=== PATIENT | male | born 1970 | race Caucasian/White ===

== ENCOUNTER → 2022-02-22 04:00 | Outpatient (CLI) | payer BC, SELFPAY | PROVIDERS: PCP Nurse Practitioner Family; Visit Provider Physician Assistant Medical ==

== ENCOUNTER 2022-08-30 06:06 | Day surgery (SDC) | payer BC, SELFPAY ==
[2022-08-30] VITALS (18 sets, daily range): BP systolic 98–132; BP diastolic 61–92; PULSE 64–81; RESP 11–22; TEMP 36.2–36.6; O2SAT 94–100; BMI 21.1
--- NOTE | 2022-08-30 06:18 | W.PREOPHP ---
Assessment and Plan Assessment and plan (1) Bilateral inguinal hernia: Status: Acute Assessment and plan: Mr. Rodgers is a 51-year-old gentleman with bilateral inguinal hernias.? There are small on examination and reducible.? He is having some mild discomfort especially when lifting his daughter who is a toddler.? We discussed open versus laparoscopic repair.? I gave him the option of getting referred to [facility] or [facility] for bilateral laparoscopic inguinal hernia repair.? He would like to stay local and is okay with having open hernia repairs.? We discussed the hernia repairs in detail using a pamphlet.? I reviewed the risks and benefits with him.? Risks, benefits and complications have been reviewed. Complications include but are not limited to bleeding, infection, injury to vas, vessels and nerves, injury to bowel and adverse reaction to medications. Questions were entertained and answered to their satisfaction and they wished to proceed.? I also discussed pain control with him and his .? We reviewed tap blocks to try to avoid narcotics. Anesthesia: general Previous surgical intolerances: No Previous surgical complications: No Pulmonary risk factors: no Planned procedure: Yes Sleep apnea risks: No Can climb one flight of stairs (12-13 steps) in less than 30 seconds without stopping and without symptoms: Yes The surgery proposed for this patient is: low risk Active cardiac conditions: none Active risk factors: none ASA (acetylsalicylic acid): not used Beta blockers: not used Proceed with bilateral open inguinal hernia repair with mesh History of Present Illness Narrative: Mr. Rodgers is a pleasant 51-year-old gentleman who come in to the office in July to discuss a right inguinal hernia.? He stated that a couple weeks prior to his appointment he noticed a bulge in the right side while he was showering.? He has had some mild discomfort with it especially when lifting his daughter who is a toddler.? About a week ago he felt something on the left side as well.? The left side seems to be a little bit more uncomfortable than the right.? He has not had any urinary symptoms.? He is otherwise quite healthy and only has seasonal allergies for which he takes a nasal spray. He has not had any new health issues since I saw him last. He denies chest pain or shortness of breath with activity or at rest. Review of Systems All systems reviewed & are unremarkable except as noted in HPI and below PFSH All Active Problems Screening for colon cancer (Acute) Bilateral inguinal hernia (Acute) Inguinal hernia, right (Acute) Hernia (Chronic) Impacted esophageal foreign body (Acute) Medical History Anxiety Pain in left ankle Seasonal allergies Testicular nodule Surgical History EGD - MAC (07/27/17) EGD - MAC (08/31/17) Social History Smoking/Tobacco Use Status: Never Smoking risk assessment performed?: Yes Alcohol Intake: never Drug use: Never Substance use type: does not use Do you feel safe at home: Yes Do you feel safe in your relationship?: Yes Meds Allergies and Home Medications Allergies Allergy/AdvReac Type Severity Reaction Status Date / Time amoxicillin [From Augmentin] Allergy Unknown Verified 07/18/22 08:01 clavulanic acid Allergy Unknown Verified 07/18/22 08:01 [From Augmentin] Home Medications Medication Instructions Recorded Confirmed Type fluticasone propionate 50 2 spry inhalation DIRECTED PRN 09/26/13 08/28/22 History mcg/actuation nasal spray,suspension (Flonase) Exam Const General: cooperative, comfortable and no acute distress HENMT Head: normocephalic and atraumatic Resp Effort & Inspection: normal respiratory effort Auscultation: clear to auscultation bilaterally Cardio Rate: regular rate Rhythm: regular rhythm Heart Sounds: no gallops, no murmurs and no rubs GI Inspection: normal to inspection Palpation: soft, no hepatosplenomegaly, hernia (bilateral inguinal hernias) and nontender
--- NOTE | 2022-08-30 06:21 | W.PM.OP ---
Date of service: 08/30/22 Time of Service: 07:30 Operative Note Operative Note DATE OF PROCEDURE: 08/30/22 PRE-OP DIAGNOSIS: Right recurrent inguinal hernia and left inguinal hernia POST-OP DIAGNOSIS: same (Recurrent right direct inguinal hernia and left direct inguinal hernia) PROCEDURE: Bilateral inguinal hernia repair with mesh SURGEON: Paige Iverson [employer]ATOR: Nasreen Bush Refer to Anesthesia Record PATHOLOGY: none sent COMPLICATIONS: None Patient was transported to: PACU Patient's condition: stable Indications: Mr. Rodgers is a 51-year-old gentleman with bilateral inguinal hernias.? There are small on examination and reducible.? He is having some mild discomfort especially when lifting his daughter who is a toddler.? We discussed open versus laparoscopic repair.? I gave him the option of getting referred to [facility] or [facility] for bilateral laparoscopic inguinal hernia repair.? He would like to stay local and is okay with having open hernia repairs.? We discussed the hernia repairs in detail using a pamphlet.? I reviewed the risks and benefits with him.? Risks, benefits and complications have been reviewed. Complications include but are not limited to bleeding, infection, injury to vas, vessels and nerves, injury to bowel and adverse reaction to medications. Questions were entertained and answered to their satisfaction and they wished to proceed.? I also discussed pain control with him and his .? We reviewed tap blocks to try to avoid narcotics. Findings: moderate sized direct hernias Procedure Description: After informed consent was obtained the patient was taken to the operating room and placed in a supine position. He was placed under general anesthesia and an LMA was placed. A timeout was done for the bilateral block. Anesthesia the proceeded with a bilateral nerve blocks under ultrasound guidance please see separate report. His abdomen was prepped and draped with us in a sterile surgical fashion with ChloraPrep. A 4 cm incision was then made in the left inguinal area. Cautery was used to get through the subcutaneous tissue down to the external oblique fascia. The external ring was identified and the fascia was opened from the external ring up. The edges of the cut external oblique fascia were grasped with hemostats. The vas and its vessels were identified and a Elaine drain was placed around the vas. The cremasteric muscle was dissected away from the vas and its vasculature using blunt dissection as well as cautery. A moderate direct hernia was then identified. A 3x6 cm flat mesh was then attached to the lacunar ligament and then medially and laterally with a 2-0 Prolene. The tails of the mesh were placed under the external oblique fascia. The wound was then irrigated with some normal saline and dried. There external oblique fascia was reapproximated using 2-0 Vicryl. The scarpas fascia was closed with interrupted 3-0 vicryl. The skin was closed with a running 4-0 Vicryl suture. Next a 4 cm incision was made in the right inguinal area. Cautery was used to get through the subcutaneous tissue down to the external oblique fascia. The external ring was identified and the fascia was opened from the external ring up. The edges of the cut external oblique fascia were grasped with hemostats. A moderate direct inguinal hernia was identified. The vas and its vessels were identified hugging the lateral shelving edge. I was able to gently separate them from the shelving edge and a [place]on drain was placed around the vas and its vessels. A flat 3 x 6 Bard mesh was then cut to size and attached to the lacunar ligament with 2-0 Prolene. The mesh was attached laterally and medially with a 2-0 Prolene running suture all the way up past the cord structures. The internal ring was re-created with the mesh. The extra tail of the mesh was then placed underneath the external oblique fascia. The area was irrigated with saline. The external oblique fascia was reapproximated using 2-0 Vicryl. The subcutaneous tissue was reapproximated using 3-0 Vicryl. The dermis was reapproximated using a running 4-0 Vicryl suture. . Skin was cleaned and dried and skin affix was applied to all incisions. The drapes were removed and the testicles were palpated and they were both within the scrotum. The patient was woken up extubated and taken back to PACU in stable condition. Sponge instrument needle counts were correct at the end of the case x2.
--- NOTE | 2022-08-30 06:24 | W.PM.DSUDISC ---
Date of service: 08/30/22 Time of Service: 12:04 Discharge Plan Disposition Condition: Good Discharge Details Reason For Visit: Bilateral inguinal hernias Attending Provider: Paige Iverson Primary Care Provider: Modesta Prieto Home Meds and New Rx's Prescriptions: New oxycodone 5 mg tablet 5 mg PO Q6H PRNQty: 14 0RF Discontinued fluticasone propionate [Flonase] 16 GM spray,suspension 2 spry Inhalation DIRECTED PRN Label Comments: 05/25/14-No longer takes. LP Discharge Instructions Additional Instructions: Activity at Home after surgery: 1. Make sure you walk outside at least 4 times per day 2. You should be able to climb a flight of stairs 3. No driving while in pain or taking pain medications 4. No strenuous activity or heavy lifting (no more then 10 lb) for 4 weeks (open surgery) Diet, Nutrition, & wound healin. Avoid alcohol until after you are recovered from your surgery 2. Make sure to eat plenty of lean protein (meat, fish, eggs, cottage cheese, beans) 3. Eat a variety of fruits and vegetables. Eat plenty of high fiber foods to avoid constipation. 4. Drink plenty of liquids to stay hydrated and avoid constipation Pain Medications: 1. Tylenol 650mg every 6 hours as needed and Ibuprofen 600 mg every 6 hours as needed. You may alternate between the 2 medications every 3 hours 2. If a narcotic has been prescribed take as directed only for breakthrough pain For Constipation: 1. Take Milk of Magnesia or MiraLax as needed for constipation Other: 1. You may shower daily. Do not scrub the incisions 2. Do not soak the incisions for 1 week 3. You may alternate ice and heat as needed for pain and swelling Wound Care: 1. Keep the incisions clean and dry Please call our office if you develop: 1. Fevers >101.5 2. Nausea or Vomiting 3. Worsening pain 4. Redness and thick discharge from the wounds If after hours please call the Hospital at and ask to speak to the on-call surgeon Stand Alone Forms: Anesthesia Discharge Inst., [facility].Nerve Block Instructions, Cony Cabrera (DSU) Activity:: as above Shower/Bathe:: 24 hours Equipment/Supplies:: No Equipment Needed Diet:: As Tolerated DS: Diagnosis Discharge Diagnosis (1) Bilateral inguinal hernia: Status: Acute
[2022-08-30] MEDS: Gabapentin 300 MG CAP 600 MG PO (06:51)
[2022-08-30] MEDS: Acetaminophen 500 MG TAB 1000 MG PO (06:51)
[2022-08-30] MEDS: Celecoxib 200 MG CAP PO (06:51)
--- NOTE | 2022-08-30 07:04 | W.ANESPRE ---
General Info Date of Service Date Performed: 08/30/22 Height: 5 ft 11 in Weight: 68.8 kg Body Mass Index (BMI): 21.1 Surgical Procedure: Operation Date: 08/30/22 07:40 Proposed Procedure Side Surgeon p Herniorrhaphy Inguinal w/Mesh Bilateral Paige Iverson MD Meds Allergies and Home Medications Allergies Allergy/AdvReac Type Severity Reaction Status Date / Time amoxicillin [From Augmentin] Allergy Unknown Verified 07/18/22 08:01 clavulanic acid Allergy Unknown Verified 07/18/22 08:01 [From Augmentin] Home Medication Medication Instructions Recorded fluticasone propionate 50 2 spry inhalation DIRECTED PRN 09/26/13 mcg/actuation nasal spray,suspension (Flonase) Current Visit Medications: Current Medications Generic Name Dose Route Start Last Admin Trade Name Freq PRN Reason Stop Dose Admin Acetaminophen 1,000 mg 08/30/22 06:00 08/30/22 06:51 Acetaminophen 500 Mg Tab PO 09/28/22 23:59 1,000 mg PREOP CHARITY Administration Celecoxib 200 mg 08/30/22 06:00 08/30/22 06:51 Celecoxib 200 Mg Cap PO 09/28/22 23:59 200 mg PREOP CHARITY Administration Gabapentin 600 mg 08/30/22 06:00 08/30/22 06:51 Gabapentin 300 Mg Cap PO 09/28/22 23:59 600 mg PREOP CHARITY Administration Ringer's Solution 1,000 mls @ 80 mls/hr 08/30/22 06:00 IV 09/28/22 23:59 INFUSION CHARITY Cefazolin Sodium/Dextrose 2 gm in 50 mls @ 100 mls/hr 08/30/22 06:00 Ancef Duplex IVPB 09/28/22 23:59 PREOP CHARITY Ondansetron HCl 4 mg/ Sodium 52 mls @ 200 mls/hr 08/30/22 06:25 Chloride IVPB Q6H PRN PRN IV Miscellaneous Supplies 1 each 08/30/22 06:00 Iv Access IV 09/28/22 23:59 DIRECTED CHARITY Ibuprofen 600 mg 08/30/22 06:25 Ibuprofen 600 Mg Tab PO Q6H PRN PRN Pain Oxycodone HCl 5 mg 08/30/22 06:25 Oxycodone 5 Mg Tab PO Q3H PRN PRN Pain Sodium Chloride 0 ml 08/30/22 06:00 Normal Saline Flush 10 Ml Syr IV 09/28/22 23:59 PRN PRN Sodium Chloride 0 ml 08/30/22 06:00 Normal Saline 10 Ml Vial IJ 09/28/22 23:59 DIRECTED PRN Sterile Water 0 ml 08/30/22 06:00 Water,Injection,Sterile 10 Ml Vial IJ 09/28/22 23:59 DIRECTED PRN PFSH Active Problems Active Problems: Problem Status Onset Code Impacted esophageal foreign body T18.108A Hernia K46.9 Inguinal hernia, right K40.90 Bilateral inguinal hernia K40.20 Screening for colon cancer Z12.11 Medical History Medical History Anxiety Pain in left ankle Seasonal allergies Testicular nodule Medical History Comments:: at age 8, he reports nausea after surgery Surgical History Surgical History (Updated 08/30/22 @ 06:34 by Jocy Castro) EGD - MAC (07/27/17) EGD - MAC (08/31/17) Hx of wisdom tooth extraction Tobacco Smoking/Tobacco Use Status: Never Alcohol Alcohol Intake: never Substance Use Substance use: Never Substance use type: does not use Vital Signs and Lab Results Vital Signs Most Recent Vital Signs in EMR: Most Recent Vital Signs Temp Pulse Resp BP Pulse Ox 36.5 C 75 18 117/92 H 96 08/30/22 06:39 08/30/22 06:39 08/30/22 06:39 08/30/22 06:39 08/30/22 06:39 Lab Results Blood Type / Crossmatch: No Data to Display Complete Blood Count: No Data to Display Complete Metabolic Panel: No Data to Display Liver Function Panel: No Data to Display Coagulation Panel: No Data to Display Cardiac Panel: No Data to Display Arterial Blood Gas: No Data to Display Venous Blood Gas: No Data to Display Pancreas Panel: No Data to Display Thyroid Panel: No Data to Display Infectious Disease: No Data to Display Blood Cultures: No Data to Display Toxicology Panel: No Data to Display Anesthesia Assessment and Plan Anesthesia History Personal History: No History of Anesthesia Complications Family History: No Family History of Anesthesia Complications Exercise Tolerance Exercise Tolerance: Metabolic Equivalents>4 Pertinent Negatives Pertinent Negatives: No Symptoms of GERD, No Major Cardiovascular Symptoms or Complaints, No Major Pulmonary Symptoms or Complaints and No History of CVA/TIA Cardiac & Pulmonary Exam Cardiac Exam: Normal S1/S2 Heart Sounds Pulmonary Exam: Clear Bilateral Breath Sounds Implantable Cardiac Device Does patient have a Pacemaker or an ICD?: No Airway Exam Known Difficult Airway: No Mallampati Class: 1 Mouth Opening: Normal (> 3cm) Thyromental Distance: Greater than 3 cm Neck Range of Motion: Full ROM Neck Circumference: Normal Teeth Condition: Normal Dentition ASA Classification ASA Score: ASA 2 Emergency Case?: No NPO Status NPO Status: NPO Clears >2 hours, Solids >8 hours Anesthesia Plan Resuscitation Status: Full Code Anesthesia Technique: General Anesthesia Airway Planned: LMA Monitors Used: Standard Monitors
[2022-08-30] MEDS: Lactated Ringers 1,000 ML 80 ML IV (07:15)
[2022-08-30] MEDS: ceFAZolin 2 GM/50 ML BAG IVPB (07:44)
[2022-08-30] MEDS: Bupivacaine 0.25% Pres-Free 10 ML VIAL (07:59)
--- NOTE | 2022-08-30 08:04 | W.ANESNERVE ---
Nerve Block Single Injection Procedure Date and Time Date Performed: 08/30/22 Procedure Start: 07:39 Location Where Procedure Performed Procedure Location: Operating Room Procedure Stop: 07:45 Reason Performed: Postoperative Analgesia Requesting Provider: Paige Iverson Timeout Performed Timeout Performed: Yes Monitoring Used ECG, Blood Pressure, SpO2 and ETCO2 Sterility Sterility: Hand Hygiene, Surgical Cap, Surgical Mask, Sterile Gloves, Eye Protection and Chlorhexidine Sedation Given During Procedure Sedation Given (Indicate Dose Given): Propofol IV Dose:: 200mg Patient Mental Status Patient Mental Status: Performed under general anesthesia Nerve Block 1st Nerve Block: Laterality: Bilateral Block Type: TAP Bilateral Needle / Catheter Used: 100mm SonoPlex II Local Anesthetic Bolus (Indicate Dose Given): Injected in 3-5ml increments after negative blood aspiration, Half of Total block solution given into each side and Bupivacaine 0.25% Dose:: 30cc Additives (Indicate Dose Given): Epinephrine to make 1:200,000 (5mcg/ml) Dose:: 15cc each side Ultrasound: Sterile probe cover and gel used Ultrasound Image Saved?: Yes Nerve Stimulator: Not Used Paresthesia: None Post Procedure Pain score (0-10): 0 Procedure Tolerated: No Complications and Patient tolerated well Procedure Outcome: Successful Performed By: Teofilo Mccord
[2022-08-30] MEDS: fentaNYL 100 MCG/2 ML VIAL IVP (10:23)
--- NOTE | 2022-08-30 11:04 | W.ANESPOSTOP ---
Postoperative Evaluation Date, Time and Location Date Performed: 08/30/22 Time Performed: 11:05 Patient Location: Day Surgery Unit Vital Signs Most Recent Imported Vital Signs: Most Recent Vital Signs Temp Pulse Resp BP Pulse Ox 36.3 C L 64 18 110/75 98 08/30/22 10:47 08/30/22 10:47 08/30/22 10:47 08/30/22 10:47 08/30/22 10:47 Pain Score Most Recent Pain Score: Most Recent Pain Score Pain Level 3 08/30/22 10:47 Assessment Mental Status: Awake (Alert & Oriented to Patient Baseline) Airway and Respiratory Function: Patent airway with normal (patient baseline) respiratory exam Cardiovascular Function: Hemodynamically Stable Hydration Status: Adequately Hydrated Nausea & Vomiting: No Nausea or Vomiting Pain: Pain is tolerable per patient Peripheral Nerve Block: Patient did not receive a nerve block
[2022-08-30] MEDS: oxyCODONE 5 MG TAB PO (12:04)
[2022-08-30] MEDS: Ondansetron 4 MG/2 ML VIAL IVP (13:05)
== END 2022-08-30 15:15 | disposition home or self-care (01) ==
PROVIDERS: PCP Nurse Practitioner Family; Visit Provider Surgery
PROC: (CPT 49520; principal; 2022-08-30 07:30)
DX: K40.21 Bilateral inguinal hernia, without obstruction or gangrene, recurrent (principal)
CPT/HCPCS: 49520; 76942; C1781; J0131; J0690; J1100; J1200; J1885; J2001; J2250; J2405; J3010

== ENCOUNTER 2023-03-07 20:29 | Emergency (ER) | payer BC, SELFPAY ==
--- NOTE | 2023-03-07 20:30 | RT.EKG_ITS ---
APPROVED REPORT This report is currently processing and has not been officially signed by ADRIANNA MENDEZ.. [facility] TIME OF PERMANENT APPROVAL IS 03/11/2023 17:09 Exam: Resting ECG Reason for Exam: chest pain Patient Location: E HR:70 bpm ECG Measurements Heart Rate 70 AXIS GA 196 P 75 QRSd 76 QRS 75 QT 352 T 70 QTc 380 Conclusion Sinus rhythm...normal P axis, V-rate 60- 99
--- NOTE | 2023-03-07 20:30 | DI.RAD_ITS ---
Exam(s) XR PORTABLE CHEST AP EXAM: XR PORTABLE CHEST AP CLINICAL HISTORY: chest pain TECHNIQUE: 2D digital imaging was performed of the chest. One image was obtained. An AP view was ob tained. COMPARISON: CR CHEST 2 VIEWS PA,LAT from 07/26/2017 FINDINGS: MEDIASTINUM: Normal. HEART: Normal. PULMONARY VASCULATURE: Normal. LUNGS: Clear. PLEURAL SPACE: No pleural effusion or pneumothorax. BONE:Within normal limits for the patient's age. OTHER FINDINGS:Normal. IMPRESSION: No acute pulmonary findings. DATA REPOSITORY: RADIATION DOSE DELIVERED:
[2023-03-07 20:33] VITALS: BP 144/87; PULSE 86; RESP 16; TEMP 36.2; O2SAT 98
--- NOTE | 2023-03-07 20:47 | ED.GENADUL_ITS ---
Discharge Plan Disposition Patient Disposition: Home Condition: Stable Discharge Details Clinical Impression: Food impaction of esophagus Primary Care Provider: Modesta Prieto ED Provider: Bertram William Home Meds and New Rx's Prescriptions: Continued fluticasone propionate [Flonase Allergy Relief] 50 mcg/actuation spray,suspension 1 spray intranasal DAILY Rx Instructions: administer into each nostril Discharge Instructions Instructions: Food Impaction (ED) Additional Instructions: return to the emergency department if you develop inability to swallow liquids, you have difficulty breathing or severe pain you should be contacted with an appointment to follow up with general surgery follow up with your primary care provider if you have lingering symptoms such as mild stomach discomfort. Medical Decision Making 52 yo male who has a hx of prior food impaction in 2017 comes in after he was eating pork tonight and felt a pressure in his lower chest similar to when he had his prior food impaction. He denies vomiting, no dyspnea, states he hasn't tried eating or drinking anything. He arrives stable speaking clearly in no distress. He has a soft nontender abdomen, points to the lower chest where he feels pressure as if something is stuck. Suspect food impaction, will trial eff ervescent and if this isn't effective try glucagon. Doubt acs but given he localizes the discomfort to the chest will obtain ecg and troponin. labs and xray unremarkable and pt feels better after effervescent and feels the impaction sensation he had is gone now, no vomiting and swallowing normally. Given he has no vomiting and the food was soft with no bones andseems like it has passed based on his description do not feel he needs emergent endoscopy. He is stable for d/c, will place on the f/u list to see general surgery as an outpatient, return precautions given Differential Diagnosis Differential Diagnosis: food impaction, gastritis Medical Records Medical records reviewed: Yes I reviewed the patient's medical records. Imaging Data Radiologic Study: Attestation: I personally reviewed and interpreted this imaging study as follows: Imaging: X-Ray Radiologist's impression: no acute findings ECG Data Attestation: I personally reviewed and interpreted this ECG (s) as follows: Prior ECG tracings: not available for review Interpretation: sinus rhythm, rate of 70, pr 196, no acute ischemic findings HPI General Mode of arrival: ambulatory . Date/Time Provider Initiated Documentation: 03/07/23 20:39 . Limitations to Documentation: no limitations . Information obtained by: patient . History of Present Illness 52 year old M presents to the emergency department with the chief complaint of ?food impaction, described as moderate, Patient started experiencing this hour(s) (2) and it has been constant. No relieving factors improve symptom(s), No exacerbating factors reported . Patient notes no other symptoms.. Patient did receive the following treatments prior to arrival, none Related Data Home Medications Medication Instructions Recorded Confirmed fluticasone propionate 50 1 spray intranasal DAILY 09/12/22 10/19/22 mcg/actuation nasal spray,suspension (Flonase Allergy Relief) Allergies Allergy/AdvReac Type Severity Reaction Status Date / Time amoxicillin [From Augmentin] Allergy Unknown Verified 10/19/22 15:19 clavulanic acid Allergy Unknown Verified 10/19/22 15:19 [From Augmentin] General Stated Complaint: Abd Prob TOÑO: 3 Review of Systems All systems reviewed & are unremarkable except as noted in HPI and below Constitutional Constitutional: Denies chills, Denies fever(s) and Denies weakness Cardiovascular Cardiovascular: Denies dyspnea Respiratory Respiratory: Denies cough and Denies dyspnea Gastrointestinal Gastrointestinal: Denies abdominal pain, Denies nausea and Denies vomiting Integumentary/Breasts Skin/Breast: Denies rash Neurologic Neurologic: Denies weakness PFSH All Active Problems (Updated 03/07/23 @ 21:48 by Bertram William MD) Food impaction of esophagus (Acute) Visit for wound check (Acute) Impacted esophageal foreign body (Acute) Hernia (Chronic) Inguinal hernia, right (Acute) Screening for colon cancer (Acute) Medical History (Updated 03/07/23 @ 21:48 by Bertram William MD) Anxiety Bilateral inguinal hernia Pain in left ankle Seasonal allergies Testicular nodule Surgical History (Updated 08/30/22 @ 06:34 by Jocy Castro) EGD - MAC (07/27/17) EGD - MAC (08/31/17) Hx of wisdom tooth extraction Social History Smoking/Tobacco Use Status: Never Smoking risk assessment performed?: Yes Alcohol Intake: never Drug use: Never Substance use type: does not use Do you feel safe at home: Yes Do you feel safe in your relationship?: Yes Additional Social history: unable assess privately Exam Const General: no acute distress Orientation: alert HENMT Head: normal to inspection Ears: external ears normal General nose exam: external nose normal Mouth: moist mucous membranes Eyes General: appearance normal, both eyes and all related structures Neck Neck: normal visual inspection Resp Effort & Inspection: normal respiratory effort and able to speak in complete sentences Auscultation: clear to auscultation bilaterally Cardio Jugular venous pressure: no JVD Rate: regular rate Heart Sounds: no murmurs GI Palpation: soft and nontender Skin General skin exam: no rashes or lesions noted Neuro General: patient alert and patient oriented x3 Extrem General: normal to inspection Psych Mental Status: mental status grossly normal Course Vital Signs Vital signs: Vital Signs Temperature 36.2 C L 03/07/23 20:33 Pulse 86 03/07/23 20:33 Respiratory Rate 16 03/07/23 20:33 Blood Pressure 144/87 H 03/07/23 20:33 Pulse Oximetry 98 03/07/23 20:33 Temperature 36.2 C L 03/07/23 20:33 Temperature Source Temporal Artery Scan 03/07/23 20:33 Pulse 86 03/07/23 20:33 Respiratory Rate 16 03/07/23 20:33 Blood Pressure 144/87 H 03/07/23 20:33 Blood Pressure Position Sitting 03/07/23 20:33 Pulse Oximetry 98 03/07/23 20:33 Oxygen Delivery Method Room Air 03/07/23 20:33 Oxygen Flow Rate 0 03/07/23 20:33
[2023-03-07] MEDS: Ondansetron 4 MG/2 ML VIAL IVP (20:58)
[2023-03-07] MEDS: Normal Saline 1,000 ML 1000 ML IV (20:58)
[2023-03-07 21:04] LABS: Abs Immature Grans 0.01 10^3/uL (0.0-0.06); Absolute Basophil Count 0.06 10^3/uL (0.0-0.2); Absolute Eosinophil Count 0.22 10^3/uL (0.0-0.7); Absolute Lymphocyte Count 1.97 10^3/uL (1.2-3.4); Absolute Monocyte Count 0.44 10^3/uL (0.1-0.8); Eosinophils % 3.7; HCT 49.2 % (40.0-50.0); HGB 16.4 g/dL (13.5-17.5); Immature Grans % 0.2; Lymphocytes % 33.4; MCH 29.5 pg (27.0-33.0); MCHC 33.3 % (32.0-36.0); MCV 89 fL (80-95); MPV 9.7 fL (8.0-11.0); Monocytes % 7.5; Neutrophils % 54.2; Platelet Count 189 10^3/uL (130-400); RBC 5.56 10^6/uL (4.36-5.78); RDW 12.2 % (11.8-14.1); RDW-SD 39.8 fL
[2023-03-07] MEDS: Potassium Bicarbonate/Cit AC 25 MEQ TABLET.EFF PO (21:08)
--- NOTE | 2023-03-07 21:49 | DI.VRAD_ITS ---
PROCEDURE INFORMATION: Exam: XR Chest Exam date and time: 03/07/2023 9:03 PM Age: 52 years old Clinical indication: Other: Chest pain TECHNIQUE: Imaging protocol: Radiologic exam of the chest. Views: 1 view. COMPARISON: CR CHEST 2 VIEWS PA,LAT 07/26/2017 8:13 PM FINDINGS: Lungs: Unremarkable. No consolidation. Pleural spaces: Unremarkable. No pleural effusion. No pneumothorax. Heart/Mediastinum: Unremarkable. No cardiomegaly. Bones/joints: Unremarkable. IMPRESSION: No acute findings. Dictated and Authenticated by: Kvng Ramirez MD. Ordering:TALA Burden MD
[2023-03-07 21:59] LABS: ALT 35 U/L (16-63); AST 17 U/L (15-37); Albumin 3.6 g/dL (3.4-5.0); Alkaline Phosphatase 45 U/L (46-116); Anion Gap 4.7 mmol/L (3-11); BUN 11 mg/dL (7-18); Bilirubin, Total 0.4 mg/dL (0.2-1.0); CO2 31.3 mmol/L (21.0-32.0); CREATININE 1.1 mg/dL (0.70-1.30); Calcium 8.6 mg/dL (8.5-10.1); Chloride 104 mmol/L (98-107); Estimated GFR 80.77 (mL/min/1.73m2); Glucose 126 mg/dL (74-106); Lipase 38 U/L (16-77); Potassium 3.5 mmol/L (3.5-5.1); Sodium 140 mmol/L (136-145); Troponin I < 50 ng/L (<or=60)
--- NOTE | 2023-03-07 22:04 | NUR.NOTE ---
Pt placed on care management list for food impaction F/U [facility] per Dr. Roge William
== END 2023-03-07 22:20 | disposition home or self-care (01) ==
PROVIDERS: Emergency Provider Emergency Medicine; PCP Nurse Practitioner Family
DX: T18.128A Food in esophagus causing other injury, initial encounter
CPT/HCPCS: 36415; 80053; 83690; 93005; 96361; 96374; 99284; 71045; 83735; 84484; 85025; 93010; J2405

== ENCOUNTER 2023-07-06 06:03 | Day surgery (SDC) | payer BC, SELFPAY ==
--- NOTE | 2023-07-05 11:02 | W.COLOREPORT ---
Date of service: 07/06/23 Time of Service: 08:02 Colonoscopy Report Date of procedure: 07/06/23 Pre-op diagnosis general: CRC screening Post-op diagnosis procedure note: other (Polyps x2) Surgeon: Geraldine Virk Anesthesia Type: General:No Airway Estimated blood loss (mL): 2 Pathology: other Complications: None Disposition: same day Prep: Miralax/Dulcolax Retraction Time: 13 Procedure Description: After informed consent was obtained the patient was taken to the procedure room and placed in a left decubitous position. Monitors were applied and a time out was done. The patients name, date of , procedure, allergies to medications and metal in their body was reviewed. The patient was then sedated. Once sedated and comfortable a rectal exam was done. External exam was normal. Internal exam revealed a normal sphincter tone and no palpable masses. The prostate normal. The scope was then introduced and retrofelexed. No internal hemorrhoids were identified. The scope was then advanced to the cecum without difficulty. The TI and appendiceal orifice were identified. The prep was BBPS 3 in all segments for total of 9. The scope was then slowly retracted over 13 minutes back into the rectum. There are no diverticula or AVMs noted. The mucosa is pink and healthy. He had 2 polyps that we removed: 1 at 70 cm that is a 5 mm flat polyp that is removed with a cold biting forcep and another at 40cm that is a 0.75cm pedunculated polyp that is removed with a cold snare. There was some bleeding so a clip was placed across this and it did cease. All specimens are retrieved.. The scope was removed and the patient was woken up and taken back to Same day surgery in stable condition. The patient tolerated the procedure well and there were no immediate complications. Follow up: The patient should follow up in 5 years, path pending, years unless they develop changes in bowel habits or other new gastrointestinal complaints.
--- NOTE | 2023-07-05 11:03 | PDOC.DSDIS_ITS ---
Date of service: 07/06/23 Time of Service: 08:06 Discharge Plan Disposition Patient Disposition: Home Condition: Good Discharge Details Reason For Visit: Colon cancer screening Attending Provider: Geraldine Virk Primary Care Provider: Modesta Prieto Home Meds and New Rx's Prescriptions: Continued fluticasone propionate [Flonase Allergy Relief] 50 mcg/actuation spray,suspension 1 spray intranasal DAILY Rx Instructions: administer into each nostril Discontinued polyethylene glycol 3350 17 gram/dose powder 238 g PO ONCE Qty: 238 0RF Rx Instructions: take per colonoscopy instructions bisacodyl [Dulcolax (bisacodyl)] 5 mg tablet,delayed release (DR/EC) 5 mg PO ONCE Qty: 4 0RF Rx Instructions: take per colonoscopy instructions Discharge Instructions Additional Instructions: DSU Colonoscopy Post- Op Instructions Instructions for Everyone who is given Anesthesia: For your safety, please do the following for the next twenty-four (24) hours: *Do Not operate a motor vehicle (car, truck, motorcycle, etc.) *Do Not drink alcoholic beverages or use any recreational drugs for the first 24 hours or while taking pain medications. The medications in your body may have a reaction that can be dangerous. *Do Not make any important decisions or sign any important papers. Findings: Polyps x2 Follow up: My office will send a letter in 2 to 3 weeks time with the results of the pathology and when we want you to repeat the colonoscopy 1. No lifting over 20 pounds or strenuous activity for the first 24 hours after your procedure. After 24 hours there are no restrictions on your activity but you may feel fatigued for a few days. 2. After you arrive home you may have a light meal and return to your normal diet as you can tolerate it without feeling sick to your stomach. 3. You may have a bloated, gaseous feeling in your belly (abdomen) after a colonoscopy. Passing gas and belching will help. Walking or lying down on your left side with your knees flexed may relieve the discomfort. Call the office at [phone] (Office) or [phone] (Hospital) right away if you notice any of the following: a.Vomiting of blood or ?coffee ground stools?. b.Rectal bleeding 1Tbsp, blood clots or continuous bleeding. c.Severe belly (abdominal) pain. d.A hard distended belly (abdomen) and an inability to pass gas. 4. Please don?t expect to have a normal BM (bowel movement) for 2-3 days after your procedure. 5. If there are questions regarding the findings of your procedure, please contact your doctor 6. If you are unable to contact your doctor with a problem, contact the hospital at [phone]. 7. Continue all your regular medications unless directed otherwise. I understand the above instructions and have no questions. Signature of Patient or Adult Escort Name of Responsible Adult Escort Signature of Nurse Date/Time Activity:: See above Diet:: See above Discharge Orders Discharge Orders: Discharge Order (Routine); Ordered 07/06/23 Ordered By: Geraldine Virk DS: Diagnosis Discharge Diagnosis (1) Screening for malignant neoplasm of colon performed: Status: Acute Asessment and Plan: The patient is seen and examined after their colonoscopy.? The patient has been able to pass gas.? They are not having abdominal pain.? They have been able to tolerate liquids and a snack.? They do not have any nausea or vomiting.? They are not having any chest pain or shortness of breath.??? They are not having any rectal bleeding. Their vital signs have been stable-see nursing notes. We discussed findings during their colonoscopy, and any biopsies that were done/polyps that were removed. The patient will be sent a letter with any biopsy results, and when to repeat the colonoscopy.-see discharge instructions. Patient was given explicit instructions to follow-up regarding colonoscopy-refer to discharge instructions.? We reviewed resumption of medications. Patient verbalized understanding and discharged in stable and satisfactory condition- See nursing notes. (2) Adenomatous polyps: Status: Acute
--- NOTE | 2023-07-06 06:12 | W.ANESPRE ---
General Info Date of Service Date Performed: 07/06/23 Height: 5 ft 10 in Weight: 70.307 kg Body Mass Index (BMI): 22.2 Surgical Procedure: Operation Date: 07/06/23 07:35 Proposed Procedure Side Surgeon dinora Virk, Meds Allergies and Home Medications Allergies Allergy/AdvReac Type Severity Reaction Status Date / Time amoxicillin [From Augmentin] Allergy Unknown Verified 07/06/23 06:24 clavulanic acid Allergy Unknown Verified 07/06/23 06:24 [From Augmentin] Home Medication Medication Instructions Recorded fluticasone propionate 50 1 spray intranasal DAILY 09/12/22 mcg/actuation nasal spray,suspension (Flonase Allergy Relief) Current Visit Medications: Current Medications Generic Name Dose Route Start Last Admin Trade Name Freq PRN Reason Stop Dose Admin Hyoscyamine Sulfate 0.125 mg 07/06/23 09:18 Hyoscyamine 0.125 Mg Sl/Oral/Chew SL 08/05/23 09:17 DIRECTED PRN IV Miscellaneous Supplies 1 each 07/06/23 06:00 Iv Access IV 08/04/23 23:59 DIRECTED CHARITY Ondansetron HCl 4 mg 07/06/23 09:18 Ondansetron 4 Mg/2 Ml Vial IVP 08/05/23 09:17 Q4H PRN PRN Nausea / Vomiting Sodium Chloride 0 ml 07/06/23 06:00 Normal Saline Flush 10 Ml Syr IV 08/04/23 23:59 PRN PRN Sodium Chloride 0 ml 07/06/23 06:00 Normal Saline 10 Ml Vial IJ 08/04/23 23:59 DIRECTED PRN Sterile Water 0 ml 07/06/23 06:00 Water,Injection,Sterile 10 Ml Vial IJ 08/04/23 23:59 DIRECTED PRN PFSH Active Problems Active Problems: Problem Status Onset Code Screening for malignant neoplasm of colon performed Z12.11 Right inguinal pain R10.31 Swelling abdomen R19.00 Visit for wound check Z51.89 Impacted esophageal foreign body T18.108A Hernia K46.9 Inguinal hernia, right K40.90 Screening for colon cancer Z12.11 Medical History Medical History Anxiety Bilateral inguinal hernia Pain in left ankle Seasonal allergies Testicular nodule Medical History Comments:: at age 8, he reports nausea after surgery Surgical History Surgical History (Updated 07/06/23 @ 06:23 by Valencia Soto) EGD - MAC (07/27/17) EGD - MAC (08/31/17) History of hernia repair Hx of wisdom tooth extraction Tobacco Smoking/Tobacco Use Status: Never Alcohol Alcohol Intake: never Substance Use Substance use: Never Substance use type: does not use Vital Signs and Lab Results Vital Signs Most Recent Vital Signs in EMR: Temp Pulse Resp BP Pulse Ox 36.2 C L 84 16 106/78 99 07/06/23 06:15 07/06/23 06:15 07/06/23 06:15 07/06/23 06:15 07/06/23 06:15 Lab Results Blood Type / Crossmatch: No Data to Display Complete Blood Count: No Data to Display Complete Metabolic Panel: No Data to Display Liver Function Panel: No Data to Display Coagulation Panel: No Data to Display Cardiac Panel: No Data to Display Arterial Blood Gas: No Data to Display Venous Blood Gas: No Data to Display Pancreas Panel: No Data to Display Thyroid Panel: No Data to Display Infectious Disease: No Data to Display Blood Cultures: No Data to Display Toxicology Panel: No Data to Display Imaging and Studies Imaging and Studies Study information below may be from another EMR and interpreted by another provider. Please see original notes in EMR for more complete details. EKG Summary: 03/23: sinus. Anesthesia Assessment and Plan Anesthesia History Personal History: No History of Anesthesia Complications Family History: No Family History of Anesthesia Complications Exercise Tolerance Exercise Tolerance: Metabolic Equivalents>4 Cardiac & Pulmonary Exam Cardiac Exam: Normal S1/S2 Heart Sounds Pulmonary Exam: Clear Bilateral Breath Sounds Implantable Cardiac Device Does patient have a Pacemaker or an ICD?: No Airway Exam Known Difficult Airway: No Mallampati Class: 1 Mouth Opening: Normal (> 3cm) Thyromental Distance: Greater than 3 cm Neck Range of Motion: Full ROM Neck Circumference: Normal Teeth Condition: Normal Dentition ASA Classification ASA Score: ASA 2 Emergency Case?: No NPO Status NPO Status: NPO Clears >2 hours, Solids >8 hours Anesthesia Plan Resuscitation Status: Full Code Anesthesia Technique: General Anesthesia Airway Planned: Natural Airway Monitors Used: Standard Monitors Preoperative Comments:: 52 yo male for colo Sig PMHx: anxiety, never smoker, denies major. Previous Anes: - hernia, LMA 5, no issues. - EGD, prop, natural airway, no issues. - EGD/foreign body, blanca 2 grade 1.
[2023-07-06 06:15] VITALS: BP 106/78; PULSE 84; RESP 16; TEMP 36.2; O2SAT 99
[2023-07-06] MEDS: Lactated Ringers 1,000 ML 80 ML IV (06:39)
[2023-07-06 06:56] VITALS: BMI 22.2
--- NOTE | 2023-07-06 07:48 | BOWEL_PTH ---
PATIENT: Home Rodgers LOC: [facility] U#:[id number] AGE/SX: 52/M ROOM: RE07/06/[address]: Geraldine Virk : 1970 BED: DIS: 07/06/2023 SPEC #: [id number] RECD: 07/06/23 11:16 STATUS: LUCY REQ #: [id number] NISHI: 07/06/23 07:[address]: Geraldine Virk DEPT: Surgical Specimen RECD BY: Monika Avelar ENTERED: 07/06/23 11:16 SP TYPE: Bowel OTHR DR: Modesta Prieto Tissues: 1 - BIOPSY BOWEL 2 - BIOPSY BOWEL Procedures: GROSS AND MICRO LEVEL 4 Comments: [id number]
[2023-07-06 08:06] VITALS: BP 97/68; PULSE 80; RESP 18; TEMP 36.4; O2SAT 97
--- NOTE | 2023-07-06 08:11 | W.ANESPOSTOP ---
Postoperative Evaluation Date, Time and Location Date Performed: 07/06/23 Time Performed: 08:11 Patient Location: Day Surgery Unit Vital Signs Most Recent Imported Vital Signs: Most Recent Vital Signs Temp Pulse Resp BP Pulse Ox 36.4 C L 80 18 97/68 L 97 07/06/23 08:06 07/06/23 08:06 07/06/23 08:06 07/06/23 08:06 07/06/23 08:06 Pain Score Most Recent Pain Score: Most Recent Pain Score Pain Level 0 07/06/23 08:06 Assessment Mental Status: Awake (Alert & Oriented to Patient Baseline) Airway and Respiratory Function: Patent airway with normal (patient baseline) respiratory exam Cardiovascular Function: Hemodynamically Stable Hydration Status: Adequately Hydrated Nausea & Vomiting: No Nausea or Vomiting Pain: Pt. Denies Any Pain Peripheral Nerve Block: Patient did not receive a nerve block
[2023-07-06 08:27] VITALS: BP 105/85; PULSE 60; RESP 16; TEMP 36.4; O2SAT 99
== END 2023-07-06 08:46 | disposition home or self-care (01) ==
PROVIDERS: PCP Nurse Practitioner Family; Visit Provider Surgery
PROC: 0DJD8ZZ Inspection of Lower Intestinal Tract, Via Natural or Artificial Opening Endoscopic (ICD-10-PCS; CPT 45378; principal; 2023-07-06 07:30)
DX: Z12.11 Encounter for screening for malignant neoplasm of colon (principal); D12.5 Benign neoplasm of sigmoid colon
CPT/HCPCS: 45385; 45380; 88305; J2001

== ENCOUNTER 2024-02-14 20:14 | Emergency (ER) | payer BC, SELFPAY ==
[2024-02-14] VITALS (13 sets, daily range): BP systolic 115–122; BP diastolic 57–97; PULSE 59–75; RESP 8–15; TEMP 36.8–37; O2SAT 88–98
--- NOTE | 2024-02-14 20:15 | RT.EKG_ITS ---
APPROVED REPORT Exam: Resting ECG Reason for Exam: chest pain Patient Location: E HR:66 bpm ECG Measurements Heart Rate 66 AXIS NE 205 P 77 QRSd 77 QRS 83 QT 372 T 60 QTc 391 Conclusion Sinus rhythm...normal P axis, V-rate 60- 99 Borderline prolonged NE interval...NE >202, V-rate 50- 90 Normal [place] Normal Electrocardiogram There are no significant changes compared to prior EKG performed on 03/07/2023 at 21:00.
--- NOTE | 2024-02-14 20:36 | W.ED.GENAD ---
Discharge Plan Disposition Patient Disposition: Home Condition: Stable Discharge Details Clinical Impression: Chest pain of uncertain etiology Primary Care Provider: Modesta Prieto ED Provider: Chucky Dickerson Home Meds and New Rx's Prescriptions: No Action fluticasone propionate [Flonase Allergy Relief] 50 mcg/actuation spray,suspension 1 spray intranasal DAILY Rx Instructions: administer into each nostril Discharge Instructions Instructions: Chest Pain (ED) Additional Instructions: You were seen in the emergency department for your chest pain that started doing yard work last week, happened again yesterday. Your laboratory workup for any damage to the heart is negative your EKG shows no evidence of ischemic changes. The laboratory that checks for blood clot of the lungs is negative, do not suspect any serious cardiac etiology this is likely a musculoskeletal muscle strain. Though at your age it is reasonable to follow-up as an outpatient for baseline cardiology studies like echocardiogram and a stress test. Please return to the emergency department for any further chest pain especially with severe shortness of breath, dizziness, sweating or any other emergent concerns. Referrals: [facility] [Provider Group] Modesta Prieto [Primary Care Provider] - Discharge Data Discharge Date/Time-TO BE ENTERED AT DEPARTURE: 02/14/24 22:45 HPI General Date/Time Provider Initiated Documentation: 02/14/24 20:34. HPI Narrative: 53 year-old male presents to ED today by POV/ambulating with a chief complaint of chest pain and pressure, stabbing with onset one week ago after doing some yard work. Quality described as stabbing chest pain, some tingling in L arm, has not improved with resting from other chores this week, initially he felt it may be musculoskeletal, no radiation to syncope, shortness of breath, pain with deep inspiration, dizziness, fever, cough. Severity is described as 3/10. Palliating factors include nothing specific. Provoking factors include nothing specific. Patient not anticoagulated. Related Data Home Medications Medication Instructions Recorded Confirmed fluticasone propionate 50 1 spray intranasal DAILY 09/12/22 07/05/23 mcg/actuation nasal spray,suspension (Flonase Allergy Relief) Allergies Allergy/AdvReac Type Severity Reaction Status Date / Time amoxicillin [From Augmentin] Allergy Unknown Verified 07/06/23 06:24 clavulanic acid Allergy Unknown Verified 07/06/23 06:24 [From Augmentin] General Stated Complaint: Chest Pain TOÑO: 3 Review of Systems All systems reviewed & are unremarkable except as noted in HPI and below Exam Narrative Exam Narrative: GENERAL APPEARANCE: Well-nourished, non-toxic, awake and alert, atraumatic, no acute distress. SKIN: Warm, pink, dry, intact, without rashes/lesions/ulcerations. HEAD: Normocephalic, atraumatic, normal hair distribution for gender/age. EYES: Pupils PERRLA, EOMs intact without nystagmus, normal conjunctiva, no exudates on lids/lashes. ENT: Nares patent, no circumoral cyanosis, no facial swelling NECK: Supple, trachea midline, painless cervical ROM. LUNGS/CHEST: Lungs CTA bilaterally- no rhonchi/rales/wheezes diffusely, non-labored respirations, normal A/P diameter, symmetrical expansion, no chest wall deformity HEART (CV/PV): Regular rate and rhythm without murmur, no peripheral edema, no JVD. ABDOMEN: Soft, non-distended, no guarding, no tenderness. MSK: Normal ROM, no swelling/deformity to bilateral UEs or LEs, moving all extremities without weakness, no cyanosis, spine midline without tenderness, normal curvature. NEURO: Mental Status AAOx4 - alert to person, place, time, events No facial droop, no forehead involvement. Motor: No focal weakness - strength 5/5 in bilateral UEs and LEs, proximal and distal, symmetric. Sensory: sensation intact to light touch globally. Gait normal: patient ambulated without ataxia into ED room. PSYCH: euthymic, cooperative, pleasant, appropriate speech Course Vital Signs Vital signs: Vital Signs Temperature 37.0 C 02/14/24 20:20 Pulse 63 02/14/24 20:20 Respiratory Rate 15 02/14/24 20:20 Blood Pressure 122/97 H 02/14/24 20:20 Pulse Oximetry 98 02/14/24 20:20 Temperature 37.0 C 02/14/24 20:20 Temperature Source Temporal Artery Scan 02/14/24 20:20 Pulse 63 02/14/24 20:20 Respiratory Rate 15 02/14/24 20:20 Blood Pressure 122/97 H 02/14/24 20:20 Blood Pressure Position Sitting 02/14/24 20:20 Pulse Oximetry 98 02/14/24 20:20 Oxygen Delivery Method Room Air 02/14/24 20:20 Oxygen Flow Rate 0 02/14/24 20:20 Pain Level 4 02/14/24 20:20 Medical Decision Making This dictation utilizes [id number] dictation software and may contain unedited grammatical errors. 53 y/o M presents to ED today with a chief complaint of chest pain ongoing 1 week, came on after doing yardwork, felt it may be MSK related but hasn't abated. Denies shortness of breath, syncope, fever, cough, palpitations. Patient denies cardiac history. Patients' medical history: History of inguinal hernias, otherwise noncontributory. Family and social history: Noncontributory. Pertinent exam findings / vital signs include benign cardiopulmonary exam, neuro intact, benign abdomen. Differential / pathologies of concern include ACS, costchondritis, PE, PNA. Diagnostic studies of: -CBC, CMP, Lipase, Trop I, BNP, EKG, CXR, D-dimer. -Trop negative with reliable onste -CBC/CMP benign -BNP neg, no pulm edema on CXR -D-dimer neg -XR Chest negative -EKG no signs of stemi, no st changes, normal qtc, Interventions of: -none. ED Course/Assessment/Plan: 53-year-old male without cardiac history presents with 1 week of some mild chest pain after some yard work, feels it may be musculoskeletal, cardiac workup is negative, no sign of PE with D-dimer negative, chest x-ray shows no acute abnormality, no pneumothorax. Counseled the patient is low risk and reasonable outpatient follow-up for possible baseline cardiology studies. Strict return criteria for any increasing chest pain especially with dizziness, diaphoresis, shortness of breath. HEART Score: Low risk, outpatient f/u Findings not consistent with ACS, PE, PNA, PTX. Disposition of Chest Pain of Uncertain Etiology. Patient verbalized understanding of the plan and return to ED criteria and engaged in shared decision making. Medical Records Medical records reviewed: Yes I reviewed the patient's medical records. Imaging Data Radiologic Study: Attestation: I personally reviewed and interpreted this imaging study as follows: Imaging: X-Ray Radiologist's impression: Exam: XR Chest Exam date and time: 02/14/2024 10:17 PM Age: 53 years old Clinical indication: Other: Chest pain TECHNIQUE: Imaging protocol: Radiologic exam of the chest. Views: 2 views. COMPARISON: CR XR PORTABLE CHEST AP 03/07/2023 9:03 PM FINDINGS: Lungs: Moderate hyperinflation which could reflect air trapping from upper respiratory infection, reactive airway disease, or emphysema/COPD. No acute infiltrates. No edema. Pleural spaces: No pleural effusion. Heart/Mediastinum: Normal heart size. Bones/joints: No acute skeletal change. IMPRESSION: 1. Nonspecific moderate hyperinflation. No acute infiltrates. 2. No acute pleural change. Dictated and Authenticated by: Robert Mccormick MD. Ordering:DIANA Locke MD Lab Data Lab results reviewed: Yes I reviewed the patient's lab results. Labs: Laboratory Tests Range/Units 02/14/24 20:39 WBC (4.4-10.8) 10^3/uL 5.77 RBC (4.36-5.78) 10^6/uL 5.20 Hgb (13.5-17.5) g/dL 15.7 Hct (40.0-50.0) % 47.3 MCV (80-95) fL 91 MCH (27.0-33.0) pg 30.2 MCHC (32.0-36.0) % 33.2 RDW (11.8-14.1) % 12.5 Plt Count (130-400) 10^3/uL 190 MPV (8.0-11.0) fL 9.3 Immature Gran % % 0.3 Neutrophils % % 52.6 Lymphocytes % % 34.1 Monocytes % % 7.1 Eosinophils % % 4.7 Basophils % % 1.2 Nucleated RBC % (0.0-0.3) % 0.0 Absolute Neutrophils (1.2-6.7) 10^3/uL 3.03 Absolute Lymphocytes (1.2-3.4) 10^3/uL 1.97 Absolute Monocytes (0.1-0.8) 10^3/uL 0.41 Absolute Eosinophils (0.0-0.7) 10^3/uL 0.27 Absolute Basophils (0.0-0.2) 10^3/uL 0.07 D-Dimer (<500) ng/mlFEU 177 Sodium (136-145) mmol/L 142 Potassium (3.5-5.1) mmol/L 3.9 Chloride (98-107) mmol/L 105 Carbon Dioxide (21.0-32.0) mmol/L 27.0 Anion Gap (3-11) mmol/L 10.0 BUN (7-18) mg/dL 9 Creatinine (0.70-1.30) mg/dL 1.0 Est GFR (CKD-EPI 2020) (mL/min/1.73m2) 90.00 Glucose (74-106) mg/dL 125 H Calcium (8.5-10.1) mg/dL 9.0 Total Bilirubin (0.2-1.0) mg/dL 0.5 AST (15-37) U/L 26 ALT (16-63) U/L 45 Alkaline Phosphatase (46-116) U/L 44 L Troponin I (< or =60) ng/L < 50 NT-Pro-B Natriuret Pep (<300) pg/mL 8 Total Protein (6.4-8.2) g/dL 7.6 Albumin (3.4-5.0) g/dL 3.9 Lipase (16-77) U/L 32 Quality:SDOH Health Related Social Needs: No Data to Display PFSH All Active Problems (Updated 02/14/24 @ 21:54 by TERRI Hankins) Chest pain of uncertain etiology (Acute) Tubular adenoma (Acute ~07/06/23) Adenomatous polyps (Acute) Impacted esophageal foreign body (Acute) Hernia (Chronic) Inguinal hernia, right (Acute) Screening for colon cancer (Acute) Visit for wound check (Acute) Swelling abdomen (Acute) Right inguinal pain (Acute) Medical History (Updated 02/14/24 @ 21:54 by TERRI Hankins) Screening for malignant neoplasm of colon performed Bilateral inguinal hernia Seasonal allergies Testicular nodule Anxiety Pain in left ankle Surgical History (Updated 07/06/23 @ 14:51 by Jo-Ann Castillo) History of colonoscopy (~07/2023) History of hernia repair Hx of wisdom tooth extraction EGD - MAC (08/31/17) EGD - MAC (07/27/17) Social History Smoking/Tobacco Use Status: Never Smoking risk assessment performed?: Yes Alcohol Intake: never Drug use: Never Substance use type: does not use Housing: house Do you feel safe at home: Yes Do you feel safe in your relationship?: Yes
[2024-02-14 21:02] LABS: Abs Immature Grans 0.02 10^3/uL (0.0-0.06); Absolute Basophil Count 0.07 10^3/uL (0.0-0.2); Absolute Eosinophil Count 0.27 10^3/uL (0.0-0.7); Absolute Lymphocyte Count 1.97 10^3/uL (1.2-3.4); Absolute Monocyte Count 0.41 10^3/uL (0.1-0.8); Absolute Neutrophil Count 3.03 10^3/uL (1.2-6.7); Basophils % 1.2 %; Eosinophils % 4.7 %; HCT 47.3 % (40.0-50.0); HGB 15.7 g/dL (13.5-17.5); Immature Grans % 0.3 %; Lymphocytes % 34.1 %; MCH 30.2 pg (27.0-33.0); MCHC 33.2 % (32.0-36.0); MCV 91 fL (80-95); MPV 9.3 fL (8.0-11.0); Monocytes % 7.1 %; Neutrophils % 52.6 %; Platelet Count 190 10^3/uL (130-400); RDW 12.5 % (11.8-14.1); RDW-SD 41.1 fL; WBC 5.77 10^3/uL (4.4-10.8)
[2024-02-14 21:22] LABS: ALT 45 U/L (16-63); AST 26 U/L (15-37); Albumin 3.9 g/dL (3.4-5.0); Alkaline Phosphatase 44 U/L (46-116); BUN 9 mg/dL (7-18); Bilirubin, Total 0.5 mg/dL (0.2-1.0); Chloride 105 mmol/L (98-107); Glucose 125 mg/dL (74-106); Lipase 32 U/L (16-77); NT-proBNP 8 pg/mL (<300); Potassium 3.9 mmol/L (3.5-5.1); Sodium 142 mmol/L (136-145); Total Protein 7.6 g/dL (6.4-8.2); Troponin I < 50 ng/L (< or =60)
--- NOTE | 2024-02-14 21:45 | DI.RAD_ITS ---
Exam(s) XR CHEST 2V PA LATERAL EXAM: XR CHEST 2V PA LATERAL CLINICAL HISTORY: chest pain TECHNIQUE: 2D digital imaging was performed of the chest. Two images were obtained. PA and lateral views were obtained. COMPARISON: CR,XR XR PORTABLE CHEST AP from 03/07/2023 FINDINGS: MEDIASTINUM: Normal. HEART: Normal. PULMONARY VASCULATURE: Normal. LUNGS: Clear. PLEURAL SPACE: No pleural effusion or pneumothorax. BONE:Within normal limits for the patient's age. OTHER FINDINGS:Normal. IMPRESSION: No acute pulmonary findings. DATA REPOSITORY: RADIATION DOSE DELIVERED:
[2024-02-14 21:46] LABS: D-Dimer 177 ng/mlFEU (<500)
--- NOTE | 2024-02-14 23:15 | DI.VRAD_ITS ---
PROCEDURE INFORMATION: Exam: XR Chest Exam date and time: 02/14/2024 10:17 PM Age: 53 years old Clinical indication: Other: Chest pain TECHNIQUE: Imaging protocol: Radiologic exam of the chest. Views: 2 views. COMPARISON: CR XR PORTABLE CHEST AP 03/07/2023 9:03 PM FINDINGS: Lungs: Moderate hyperinflation which could reflect air trapping from upper respiratory infection, reactive airway disease, or emphysema/COPD. No acute infiltrates. No edema. Pleural spaces: No pleural effusion. Heart/Mediastinum: Normal heart size. Bones/joints: No acute skeletal change. IMPRESSION: 1. Nonspecific moderate hyperinflation. No acute infiltrates. 2. No acute pleural change. Dictated and Authenticated by: Robert Mccormick MD. Ordering:DIANA Locke MD
== END 2024-02-14 22:45 | disposition home or self-care (01) ==
PROVIDERS: Emergency Provider Physician Assistant; PCP Nurse Practitioner Family
DX: R07.9 Chest pain, unspecified (principal)
CPT/HCPCS: 80053; 83690; 93005; 99283; 71046; 83880; 84484; 85025; 85379; 93010

== ENCOUNTER 2024-07-19 12:22 | Emergency (ER) | payer BC, SELFPAY ==
[2024-07-19 12:32] VITALS: BP 105/72; PULSE 104; RESP 16; TEMP 36.9; O2SAT 96
--- NOTE | 2024-07-19 12:46 | ED.GENADUL_ITS ---
Discharge Plan Disposition Patient Disposition: Home Condition: Stable Discharge Details Clinical Impression: Impacted esophageal foreign body Primary Care Provider: Modesta Prieto ED Provider: Nisha Acuna Home Meds and New Rx's Prescriptions: New omeprazole 20 mg capsule,delayed release(DR/EC) 20 mg PO DAILY Qty: 30 0RF No Action fluticasone propionate [Flonase Allergy Relief] 50 mcg/actuation spray,suspension 1 spray intranasal DAILY Rx Instructions: administer into each nostril Discharge Instructions Instructions: Food Obstruction Additional Instructions: You were seen in the emergency department today for evaluation of an esophageal foreign body, likely the food you ate during lunch yesterday. In our department had a full physical examination performed and had medicines that helped you to pass the obstruction. You need to follow-up with your primary care provider, restart your acid reflux medication, and I have provided you with a referral to general surgery to discuss a repeat endoscopy. Thank you for allowing us to be part of your care. HPI General Mode of arrival: ambulatory . Date/Time Provider Initiated Documentation: 07/19/24 12:37 . Limitations to Documentation: no limitations . Information obtained by: patient and old records reviewed . HPI Narrative: HPI: This is a 53-year-old male patient with a past medical history most notable for previous episode of esophageal food impaction, who is presenting for evaluation of same. Yesterday at lunch she was eating pot roast, states that he felt a bite of meat get stuck in his throat. He initially had some difficulty swallowing liquids, states that he was able to manage his saliva and feels like at least some of the liquids must be getting past the bolus. He has not tried eating since this occurred, endorses an ongoing sensation of bolus in the center of his chest. States that he has not had any vomiting, tried Coca-Cola at home without improvement. States that when this occurred 4 years ago he had an endoscopy that showed some irritation in his esophagus, he was started on PPIs which he took for 1 month but has not been taking currently. He was otherwise in his normal state of health when this occurred, states that he did not have any choking or coughing episodes, denies shortness of breath. Exam: Gen: Awake and alert, in no apparent distress HEENT: Non-icteric sclera, managing secretions without spitting or vomiting Neck: Supple Lungs: No apparent respiratory distress, normal respiratory effort. Lung sounds clear and equal bilaterally without wheezing, rhonchi, rales CV: Appears well perfused, strong and symmetrical distal pulses Abdomen: Non-distended, soft, nontender MSK: Moves 4 extremities without apparent limitation in ROM Skin: Visualized skin without rashes, cyanosis. Neuro: Normal Gait, no obvious focal deficits or facial asymmetry. Speaks in full, clear sentences. Psych: Appropriate for situation. MDM: This is a 53-year-old male patient presenting for evaluation of food bolus. My differential includes but is not limited to partial esophageal obstruction due to food impaction, given the patient's ability to manage his secretions. I certainly considered the potential for aspiration and pulmonary foreign body, though this is less consistent with his history and physical examination. The onset with swallowing a large bite of food is less typical for other etiologies of central chest pain such as ACS, pericarditis/myocarditis, aortic pathology, and the patient is low risk by history for these etiologies. If the patient is hemodynamically stable, protecting his airway, and I will provide him with an additional trial of Coca-Cola as well as glucagon for muscle relaxation for initial attempt to promote passage of the food bolus. At this time I do not see any indication for advanced imaging or laboratory studies. ED Course: After glucagon and Coca-Cola, the patient reports that his bolus sensation has improved, and he was able to drink a large volume of water without pain or vomiting. I provided the patient with a prescription for Prilosec for reinitiation, a referral to general surgery for repeat endoscopy, and the patient reports that he will contact his primary care provider to discuss follow-up. At this time, the patient has had a full medical evaluation and is safe for discharge to home. They are hemodynamically stable, ambulatory, and tolerating PO. They are understanding of the follow-up plan and return precautions. They left our facility without incident. Nisha Acuna MD Related Data Home Medications ?Medication ?Instructions ?Recorded ?Confirmed fluticasone propionate 50 1 spray intranasal DAILY 09/12/22 07/19/24 mcg/actuation nasal spray,suspension (Flonase Allergy Relief) omeprazole 20 mg capsule,delayed 20 mg PO DAILY #30 caps 07/19/24 release Previous Rx's ?Medication ?Instructions ?Recorded omeprazole 20 mg capsule,delayed 20 mg PO DAILY #30 caps 07/19/24 release Allergies Allergy/AdvReac Type Severity Reaction Status Date / Time amoxicillin (From Augmentin) Allergy Unknown Other (See Verified 07/19/24 12:36 Comment) clavulanic acid (From Allergy Unknown Other (See Verified 07/19/24 12:36 Augmentin) Comment) General Stated Complaint: ThroatFB TOÑO: 3 Course Vital Signs Vital signs: Vital Signs Temperature 36.9 C 07/19/24 12:32 Pulse 104 H 07/19/24 12:32 Respiratory Rate 16 07/19/24 12:32 Blood Pressure 105/72 07/19/24 12:32 Pulse Oximetry 96 07/19/24 12:32 Temperature 36.9 C 07/19/24 12:32 Pulse 104 H 07/19/24 12:32 Respiratory Rate 16 07/19/24 12:32 Blood Pressure 105/72 07/19/24 12:32 Pulse Oximetry 96 07/19/24 12:32 Oxygen Delivery Method Room Air 07/19/24 12:32 Oxygen Flow Rate 0 07/19/24 12:32 Medical Decision Making Quality:SDOH Health Related Social Needs: No Data to Display PFSH All Active Problems (Updated 07/19/24 @ 14:08 by Nisha Acuna MD) Tubular adenoma (Acute ~07/06/23) Adenomatous polyps (Acute) Impacted esophageal foreign body (Acute) Hernia (Chronic) Inguinal hernia, right (Acute) Screening for colon cancer (Acute) Visit for wound check (Acute) Swelling abdomen (Acute) Right inguinal pain (Acute) Medical History (Updated 07/19/24 @ 14:08 by Nisha Acuna MD) Screening for malignant neoplasm of colon performed Bilateral inguinal hernia Seasonal allergies Testicular nodule Anxiety Pain in left ankle Surgical History (Updated 07/06/23 @ 14:51 by Jo-Ann Castillo) History of colonoscopy (~07/2023) History of hernia repair Hx of wisdom tooth extraction EGD - MAC (08/31/17) EGD - MAC (07/27/17) Social History Smoking/Tobacco Use Status: Never Smoking risk assessment performed?: Yes Alcohol Intake: never Drug use: Never Substance use type: does not use Housing: house Do you feel safe at home: Yes Do you feel safe in your relationship?: Yes
[2024-07-19] MEDS: Glucagon 1 MG VIAL IVP (13:04)
[2024-07-19] MEDS: Water,Injection,Sterile 10 ML VIAL (13:04)
[2024-07-19 14:19] VITALS: BP 114/75; PULSE 79; RESP 18; O2SAT 97
[2024-07-19 14:20] VITALS: BP 114/75; PULSE 79; RESP 18; O2SAT 97
== END 2024-07-19 14:22 | disposition home or self-care (01) ==
PROVIDERS: Emergency Provider Emergency Medicine; PCP Nurse Practitioner Family
DX: T18.128A Food in esophagus causing other injury, initial encounter (principal); W44.F3XA Food entering into or through a natural orifice, initial encounter; Y93.89 Activity, other specified
CPT/HCPCS: 96374; 99284; 99283; J1610